=== PATIENT | male | born 1965 | race Caucasian/White ===

== ENCOUNTER 2017-09-20 08:44 | Day surgery (SDC) | payer OTHER ==
[~2017-09-20 08:44] MED LIST: PROPOFOL 200 MG/20 ML VIAL As Ordered
[2017-09-20] MEDS: NS 1,000 ML IV (09:15)
== END 2017-09-20 10:42 | disposition home or self-care (01) ==
LOC: M OPP 08:44
DX: Z12.11 Encounter for screening for malignant neoplasm of colon (principal); M19.90 Unspecified osteoarthritis, unspecified site; R09.81 Nasal congestion; Z87.442 Personal history of urinary calculi
CPT/HCPCS: 45378